=== PATIENT | female | born 1980 | race Caucasian/White ===

== ENCOUNTER 2016-12-06 08:30 | Inpatient (IN) | payer BC ==
[2016-12-06] MEDS ORDERED: Sodium Chloride 0.9% 10 ML Syringe FLUSH PRN (09:27)
[2016-12-06] MEDS ORDERED: Oxytocin/Lactated Ringers 10 UNIT/1,000 ML BAG IV SCH (09:30)
[2016-12-06] MEDS ORDERED: Lactated Ringers 1,000 ML IV SCH (09:30)
--- NOTE | 2016-12-06 10:15 | PCM.LDHP ---
<Tato Francis - Last Filed: 12/06/16 09:46> L&D History of Present Illness - General Admit Problem/Dx: Patient Status Order with Admit Dx/Problem 12/06/16 09:34 Patient Status [ADT] Routine Admission Diagnosis/Problem Admission Diagnosis/Problem Source of Information: Patient History Limitations: Reports: No Limitations - History of Present Illness Introduction:: History of present illness: Patient is a 36-year-old 7 para 1144 white female at 39-1/7 weeks presenting for regular contractions that began occurring last night at 6:30 pm. ONIEL is 12/15/16 based on LMP. High risk due to advanced maternal age, history of recurrent spontaneous abortions, increased distance from hospital, and triplet with early spontaneous rupture of membranes. G[employer]ENTICE history: 7 para 1144. Menses occur monthly at every 23 days. Had a triplet , resulting in three children being born at 27 weeks gestation by on 04/21/2009 after early rupture of membranes at [facility] in [place]. Baby A, Radha, was 2 lbs 0 oz. Baby B, Clay, was 2 lbs 3 oz. Baby C, Pari, was 1 lbs 15 oz. She had a on 05/30/2010 at [facility] after 24 hours of labor, resulting in a 7 lbs 11 oz girl named Maya. course: First visit occurred on 05/18/16. Last menstrual period occurred 04/19/16, placing her at an ONIEL of 12/12/16. Was not on control at conception. Initial ultrasound at her first appointment and 20-week ultrasound support her ONIEL. 20-week ultrasound showed normal growth and anatomy. Has had regular appointments without any complications. Fundal height growth has been appropriate. Weight at first visit was 151 and current weight is 189, a gain of 38 lbs. TDAP was administered on . Rhogam was administered on 09/28/16 for O negative blood type. Laboratory testing: Initial testing showed O negative blood with a negative antibody screen. RPR non-reactive and rubella reactive. Hepatitis B surface antigen and HIV assays were negative. Initial HGB was 12.9 and platelet count was 214. Urinalysis showed mixed delgado suggestive of contamination. Second trimester labs showed a HGB of 11.4 and platelet count of 215. One-hour GTT was negative at 126. Group B strep is negative. [place] testing was performed, showing a low probability for trisomy 21, 18, and 13. Past medical history: 1. Breast cancer (2011) 2. Fibroid 3. Multiple miscarriages 4. Premature rupture of membranes 5. MTHFR, lipoprotein A mutations (hematologic workup for recurrent miscarriages ) 6. History of IUI with triplet Past surgical history: 1. R mastectomy 2012 2. Myomectomy 3. D&C 4. 2009 Allergies: 1. No known drug or food allergies Medications: 1. tablets 2. Iron tablets Social history: Lives in [place], [place], over an hour away from the hospital. to [facility] Hsieh. No usage of alcohol, tobacco, or illicit drugs during . Family history: Mother is alive with HTN. Father is alive with hypercholesterolemia. One brother alive and well. MGM is decreased and had Parkinson's disease. MGF decreased from old age. PGM decreased and had CVAs. PGF from old age. No anesthesia, bleeding, or clotting problems in family. Review of systems: HEENT: no headaches Cardiovascular: no chest psin Respiratory: no shortness of breath Breast: normal changes associated with Abdominal: pain with contractions Extremities: no swelling, no calf pain Physical exam: HEENT: normocephalic, atraumatic Cardiovascular: regular rate and rhythm, no murmurs Respiratory: clear breath sounds in all lung valencia Breast: deferred Abdominal: protuberant with , no tenderness Extremities: no swelling, no calf tenderness Neurological: normal reflexes - Related Data Allergies/Adverse Reactions: Allergies Allergy/AdvReac Type Severity Reaction Status Date / Time No Known Allergies Allergy Verified 12/06/16 09:37 Past Medical History G[employer]ENTICE History: Reports: Spontaneous Oncologic (Cancer) History: Reports: Breast, Other (See Below) Other Oncologic History: Rt Mastectomy in 2013 - Past Surgical History HEENT Surgical History: Reports: None Oncologic Surgical History: Reports: Mastectomy Social & Family History - Tobacco Use Smoking Status *Q: Never Smoker - Caffeine Use Caffeine Use: Reports: None - Recreational Drug Use Recreational Drug Use: No H&P Review of Systems - Review of Systems: Review Of Systems: See Below L&D Exam - Exam Exam: See Below - Vital Signs Vital Signs: Last Vital Signs Temp 98.2 F 12/06/16 09:09 Pulse 82 12/06/16 09:09 Resp 18 12/06/16 09:09 BP 120/72 12/06/16 09:09 Pulse Ox Weight: 188 lb - Problem List (1) 39 weeks gestation of SNOMED Code(s): 97336621 ICD Code: Z3A.39 - 39 WEEKS GESTATION OF Status: Acute Current Visit: Yes Problem List Initiated/Reviewed/Updated: Yes Orders Last 24hrs: Active Orders 24 hr Category Date Time Status Patient Status [ADT] Routine ADT 12/06/16 09:34 Active Activity as Tolerated [RC] PFP Care 12/06/16 09:34 Active Communication Order [RC] ASDIRECTED Care 12/06/16 09:34 Active Heart Tones [RC] ASDIRECTED Care 12/06/16 09:34 Active Notify Provider [RC] PFP Care 12/06/16 09:34 Active Notify Provider [RC] PRN Care 12/06/16 09:34 Active Peripheral IV Care [RC] . DIRECTED Care 12/06/16 09:34 Active Vital Signs [RC] PER UNIT ROUTINE Care 12/06/16 09:34 Active Regular Diet [DIET] Diet 12/06/16 Breakfast Active Lactated Ringers [Ringers, Lactated] 1,000 ml Med 12/06/16 09:30 Active IV ASDIRECTED Oxytocin/Lactated Ringers [Pitocin in LR 10 Units/1,000 Med 12/06/16 09:30 Active ML] 10 unit in 1,000 ml IV .CONTINUOUS Sodium Chloride 0.9% [Saline Flush] Med 12/06/16 09:27 Active 10 ml FLUSH ASDIRECTED PRN Electronic Heart Tones Ext w TOCO [WOMSER] Oth 12/06/16 09:34 Ordered Routine Electronic Heart Tones Internal [WOMSER] Per Unit Oth 12/06/16 09:34 Ordered Routine Peripheral IV Insertion Adult [OM.PC] Routine Oth 12/06/16 09:34 Ordered Resuscitation Status Routine Resus Stat 12/06/16 09:27 Ordered Medication Orders Lactated Ringer's (Ringers, Lactated) 1,000 mls @ 100 mls/hr IV ASDIRECTED ANDRZEJ Oxytocin/Lactated Ringer's (Pitocin In Lr 10 Units/1,000 Ml) 10 unit in 1,000 mls @ 500 mls/hr IV .CONTINUOUS ANDRZEJ Sodium Chloride (Saline Flush) 10 ml FLUSH ASDIRECTED PRN PRN Reason: Keep Vein Open Assessment/Plan Comment:: Assessment: 1. 36-year-old 7 para 1144 at 39-1/7 weeks gestation with an ONIEL of presenting in spontaneous labor. 2. GBS negative 3. Rhogam administered on 09/28/16 due to Rh-negative status Plan: 1. after TOLAC with expectant management 2. Patient plans to breast feed <Arturo Reyna - Last Filed: 12/06/16 10:41> L&D History of Present Illness - General Date of Service: 12/06/16 Admit Problem/Dx: Patient Status Order with Admit Dx/Problem 12/06/16 09:34 Patient Status [ADT] Routine Admission Diagnosis/Problem Admission Diagnosis/Problem Source of Information: Patient History Limitations: Reports: No Limitations - History of Present Illness Improves with: Reports: None Worsens with: Reports: None Associated Symptoms: Reports: N H&P Review of Systems - Review of Systems: General: Reports: No Symptoms HEENT: Reports: No Symptoms Pulmonary: Reports: No Symptoms Cardiovascular: Reports: No Symptoms Gastrointestinal: Reports: No Symptoms Genitourinary: Reports: No Symptoms Musculoskeletal: Reports: No Symptoms Skin: Reports: No Symptoms Psychiatric: Reports: No Symptoms Neurological: Reports: No Symptoms Hematologic/Lymphatic: Reports: No Symptoms Immunologic: Reports: No Symptoms L&D Exam - Vital Signs Vital Signs: Last Vital Signs Temp 98.2 F 12/06/16 09:09 Pulse 82 12/06/16 09:09 Resp 18 12/06/16 09:09 BP 120/72 12/06/16 09:09 Pulse Ox - OB Specific Fundal Height In cm: 39 Contraction Duration (sec): 60 Contraction Frequency (min): 3 Contraction Intensity: Moderate to Strong Movement: Active Heart Tones: Present Heart Tones per Min: 135 Heart Rate (FHR) Variability: Moderate (6-25 bmp) Presentation: Vertex - Matson Score Matson Score Cervix Position: Posterior Matson Score Consistency: Soft Matson Score Effacement: >80% Matson Score Dilation: > 5 cm Matson Score Infant's Station: +1, +2 Matson Score Total: 11 - Exam General: Alert, Oriented HEENT: Conjunctiva Clear, Mucosa Moist & Mallard, Normal Nasal Septum, TMs Clear, PERRLA Neck: Supple, Trachea Midline Lungs: Clear to Auscultation, Normal Respiratory Effort Cardiovascular: Regular Rate, Regular Rhythm GI/Abdominal Exam: Normal Bowel Sounds, Soft, Non-Tender, No Organomegaly, No Distention, No Abnormal Bruit, No Mass, Pelvis Stable Rectal Exam: Normal Exam, Normal Rectal Tone Genitourinary: Normal external exam, Normal bimanual exam, Normal speculum exam Back Exam: Normal Inspection, Full Range of Motion Extremities: Normal Inspection, Normal Range of Motion, Non-Tender, No Pedal Edema, Normal Capillary Refill Skin: Warm, Dry, Intact Neurological: Reflexes Equal Bilateral Psychiatric: Alert, Normal Affect, Normal Mood - Problem List (1) Previous delivery affecting , antepartum SNOMED Code(s): 984891718, 076627446 ICD Code: O34.219 - MATERNAL CARE FOR UNSP TYPE SCAR FROM PREVIOUS DEL Status: Acute Current Visit: Yes (2) Rh negative status during in third trimester, antepartum SNOMED Code(s): 989811852, 355961502 ICD Code: O09.893 - SUPERVISION OF OTHER HIGH RISK PREGNANCIES, THIRD TRIMESTER Status: Acute Current Visit: Yes (3) 39 weeks gestation of SNOMED Code(s): 21956603 ICD Code: Z3A.39 - 39 WEEKS GESTATION OF Status: Acute Current Visit: Yes Problem List Initiated/Reviewed/Updated: No Orders Last 24hrs: Active Orders 24 hr Category Date Time Status Patient Status [ADT] Routine ADT 12/06/16 09:34 Active Activity as Tolerated [RC] PFP Care 12/06/16 09:34 Active Communication Order [RC] ASDIRECTED Care 12/06/16 09:34 Active Heart Tones [RC] ASDIRECTED Care 12/06/16 09:34 Active Notify Provider [RC] PFP Care 12/06/16 09:34 Active Notify Provider [RC] PRN Care 12/06/16 09:34 Active Peripheral IV Care [RC] . DIRECTED Care 12/06/16 09:34 Active Vital Signs [RC] PER UNIT ROUTINE Care 12/06/16 09:34 Active Regular Diet [DIET] Diet 12/06/16 Breakfast Active Lactated Ringers [Ringers, Lactated] 1,000 ml Med 12/06/16 09:30 Active IV ASDIRECTED Oxytocin/Lactated Ringers [Pitocin in LR 10 Units/1,000 Med 12/06/16 09:30 Active ML] 10 unit in 1,000 ml IV .CONTINUOUS Sodium Chloride 0.9% [Saline Flush] Med 12/06/16 09:27 Active 10 ml FLUSH ASDIRECTED PRN Electronic Heart Tones Ext w TOCO [WOMSER] Oth 12/06/16 09:34 Ordered Routine Electronic Heart Tones Internal [WOMSER] Per Unit Oth 12/06/16 09:34 Ordered Routine Peripheral IV Insertion Adult [OM.PC] Routine Ot 12/06/16 09:34 Ordered Resuscitation Status Routine Resus Stat 12/06/16 09:27 Ordered Medication Orders Lactated Ringer's (Ringers, Lactated) 1,000 mls @ 100 mls/hr IV ASDIRECTED ANDRZEJ Oxytocin/Lactated Ringer's (Pitocin In Lr 10 Units/1,000 Ml) 10 unit in 1,000 mls @ 500 mls/hr IV .CONTINUOUS ANDRZEJ Sodium Chloride (Saline Flush) 10 ml FLUSH ASDIRECTED PRN PRN Reason: Keep Vein Open Assessment/Plan Comment:: Patient seen and examined by me and discussed with student.
--- NOTE | 2016-12-06 11:13 | PCM.SN ---
- Free Text/Narrative Note: Cervix examined by Dr. Reyna and is 8 cm, 100% effaced, soft, mid-position, +2 station. Patient declines amniotomy at this time. Category 1 heart rate tracing.
[2016-12-06] MEDS ORDERED: Lidocaine 1% 50 ML MDV ONE (13:56)
--- NOTE | 2016-12-06 14:26 | PCM.DEL ---
L & D Note - General Info Date of Service: 12/06/16 Mother's Due Date: 12/12/16 - Delivery Note Labor: Spontaneous Delivery Outcome: Livebirth (Female liveborn Wednesday12/06/16 at 1354 hrs. GARETH meconium-stained amnionic fluid no nuchal cord 4010 g/8 pounds 13.4 ounces. Apgars 8/9 ) Infant Delivery Method: Spontaneous Vaginal Delivery-Single Delivery Mode: Spontaneous Presentation: Right Occiput Anterior (GARETH) Nuchal Cord: None Prep: Povidone-Iodine (Betadine Anesthesia Type: Local (For second-degree midline laceration repair) Anesthetic: Lidocaine (Xylocaine) 1% Plain (15 mL) Local Anesthetic Volume: Other (15 mL) Amniotic Fluid Description: Meconium Stained (Dr. Blunt etiology teacher in attendance at delivery) Episiotomy Type: None Laceration: 2nd Degree Suture type: Other (Monocryl 2) Suture size: 3-0 Placenta: Intact, Spontaneous (Central cord insertion delivery of placenta Tommie 1357 hrs. Wednesday12/06/16) Cord: 3 Vessels Estimated Blood Loss: 250 Resuscitation Needed: No [place]: Suctioned, Bulb Syringe, Cathether, Stimulated, Warmed, [place] Used, Warmer Used Provider: Arturo Reyna Score 1 min: 8 Score 5 min: 9 - Patient Data Vitals - Most Recent: Last Vital Signs Temp 98.2 F 12/06/16 09:09 Pulse 82 12/06/16 09:09 Resp 18 12/06/16 09:09 BP 120/72 12/06/16 09:09 Pulse Ox Weight - Most Recent: 188 lb Lab Results Last 24 Hours: Laboratory Results - last 24 hr 12/06/16 12/06/16 Range/Units 12:05 12:05 WBC 16.84 H (3.98-10.04) K/mm3 RBC 3.82 L (3.98-5.22) M/mm3 Hgb 12.3 (11.2-15.7) gm/L Hct 37.4 (34.1-44.9) % MCV 97.9 H (79.4-94.8) fl MCH 32.2 (25.6-32.2) pg MCHC 32.9 (32.2-35.5) g/dl RDW Std Deviation 49.9 H (36.4-46.3) fL Plt Count 197 (182-369) K/mm3 MPV 11.1 (9.4-12.3) fl Blood Type O NEGATIVE Gel Antibody Screen Positive Med Orders - Current: Current Medications Lactated Ringer's (Ringers, Lactated) 1,000 mls @ 100 mls/hr IV ASDIRECTED ANDRZEJ Oxytocin/Lactated Ringer's (Pitocin In Lr 10 Units/1,000 Ml) 10 unit in 1,000 mls @ 500 mls/hr IV .CONTINUOUS ANDRZEJ Sodium Chloride (Saline Flush) 10 ml FLUSH ASDIRECTED PRN PRN Reason: Keep Vein Open Discontinued Medications Lidocaine HCl (Xylocaine 1%) Confirm Administered Dose 50 ml .ROUTE .STK-MED ONE Stop: 12/06/16 13:57 - Problem List & Annotations (1) Previous delivery affecting , antepartum SNOMED Code(s): 272419714, 111988866 Code(s): O34.219 - MATERNAL CARE FOR UNSP TYPE SCAR FROM PREVIOUS DEL Status: Acute Current Visit: Yes (2) Rh negative status during in third trimester, antepartum SNOMED Code(s): 788054438, 264779325 Code(s): O09.893 - SUPERVISION OF OTHER HIGH RISK PREGNANCIES, THIRD TRIMESTER Status: Acute Current Visit: Yes (3) 39 weeks gestation of SNOMED Code(s): 59484389 Code(s): Z3A.39 - 39 WEEKS GESTATION OF Status: Acute Current Visit: Yes (4) Labor and delivery complicated by meconium in amniotic fluid SNOMED Code(s): 544556151 Code(s): O77.0 - LABOR AND DELIVERY COMPLICATED BY MECONIUM IN AMNIOTIC FLUID Status: Acute Current Visit: Yes (5) Desires (vaginal after ) trial SNOMED Code(s): 984738965, 102761175 Code(s): O34.219 - MATERNAL CARE FOR UNSP TYPE SCAR FROM PREVIOUS DEL Status: Acute Current Visit: Yes (6) Second degree laceration of perineum, delivered, current hospitalization SNOMED Code(s): 236934314 Code(s): O70.1 - SECOND DEGREE PERINEAL LACERATION DURING DELIVERY Status: Acute Current Visit: Yes - Problem List Review Problem List Initiated/Reviewed/Updated: No - My Orders Last 24 Hours: My Active Orders 12/06/16 09:27 Sodium Chloride 0.9% [Saline Flush] 10 ml FLUSH ASDIRECTED PRN Resuscitation Status Routine 12/06/16 09:30 Lactated Ringers [Ringers, Lactated] 1,000 ml IV ASDIRECTED Oxytocin/Lactated Ringers [Pitocin in LR 10 Units/1,000 ML] 10 unit in 1,000 ml IV .CONTINUOUS 12/06/16 09:34 Patient Status [ADT] Routine Activity as Tolerated [RC] PFP Communication Order [RC] ASDIRECTED Heart Tones [RC] ASDIRECTED Notify Provider [RC] PFP Notify Provider [RC] PRN Peripheral IV Care [RC] . DIRECTED Vital Signs [RC] PER UNIT ROUTINE Electronic Heart Tones Ext w TOCO [WOMSER] Routine Electronic Heart Tones Internal [WOMSER] Per Unit Routine Peripheral IV Insertion Adult [OM.PC] Routine 12/06/16 12:05 ANTIBODY IDENTIFICATION [BBK] Stat TYPE AND SCREEN [BBK] Stat 12/06/16 Breakfast Regular Diet [DIET] - Plan Plan:: Patient seen and examined by me and discussed with student.
[2016-12-06] MEDS ORDERED: Docusate Sodium 100 MG Cap PO PRN (14:51)
[2016-12-06] MEDS ORDERED: Benzocaine/Menthol 20%-0.5% Spray 56 GM Canister TOP PRN (17:28)
[2016-12-06] MEDS ORDERED: Witch Hazel Medicated Pads 100/Jar TOP PRN (17:28)
[2016-12-06] MEDS: Ibuprofen 600 MG Tab PO PRN (21:58)
[2016-12-07] MEDS: Acetaminophen 325 MG Tab PO PRN ×2 (01:10→16:40)
[2016-12-07] MEDS: Ibuprofen 600 MG Tab PO PRN ×3 (03:01→14:49)
--- NOTE | 2016-12-07 08:31 | PCM.DCSUM1 ---
Discharge Summary - Hospital Course Free Text/Narrative:: [facility] LIVE L/D Delivery Note Patient Name: AARON MONTERO Date of : 78 Patient Status: Inpatient Attending Provider: Cayetano Land Date: 12/06/16 14:21 Initialization Date: 12/06/16 14:21 L & D Note - General Info Date of Service: 12/06/16 Mother's Due Date: 12/12/16 - Delivery Note Labor: Spontaneous Delivery Outcome: Livebirth (Female liveborn Wednesday12/06/16 at 1354 hrs. GARETH meconium-stained amnionic fluid no nuchal cord 4010 g/8 pounds 13.4 ounces. Apgars 8/9 ) Infant Delivery Method: Spontaneous Vaginal Delivery-Single Infant Delivery Mode: Spontaneous Presentation: Right Occiput Anterior (GARETH) Nuchal Cord: None Prep: Povidone-Iodine (Betadine Anesthesia Type: Local (For second-degree midline laceration repair) Anesthetic: Lidocaine (Xylocaine) 1% Plain (15 mL) Local Anesthetic Volume: Other (15 mL) Amniotic Fluid Description: Meconium Stained (Dr. Blunt sport psychologist in attendance at delivery) Episiotomy Type: None Laceration: 2nd Degree Suture type: Other (Monocryl 2) Suture size: 3-0 Placenta: Intact, Spontaneous (Central cord insertion delivery of placenta Tommie 1357 hrs. Wednesday12/06/16) Cord: 3 Vessels Estimated Blood Loss: 250 Resuscitation Needed: No [place]: Suctioned, Bulb Syringe, Cathether, Stimulated, Warmed, [place] Used, Warmer Used Provider: Arturo Reyna Score 1 min: 8 Score 5 min: 9 - Patient Data Vitals - Most Recent: Last Vital Signs Temp 98.2 F 12/06/16 09:09 Pulse 82 12/06/16 09:09 Resp 18 12/06/16 09:09 BP 120/72 12/06/16 09:09 Pulse Ox Weight - Most Recent: 188 lb Lab Results Last 24 Hours: Laboratory Results - last 24 hr 12/06/16 12/06/16 Range/Units 12:05 12:05 WBC 16.84 H (3.98-10.04) K/mm3 RBC 3.82 L (3.98-5.22) M/mm3 Hgb 12.3 (11.2-15.7) gm/L Hct 37.4 (34.1-44.9) % MCV 97.9 H (79.4-94.8) fl MCH 32.2 (25.6-32.2) pg MCHC 32.9 (32.2-35.5) g/dl RDW Std Deviation 49.9 H (36.4-46.3) fL Plt Count 197 (182-369) K/mm3 MPV 11.1 (9.4-12.3) fl Blood Type O NEGATIVE Gel Antibody Screen Positive Med Orders - Current: Current Medications Lactated Ringer's (Ringers, Lactated) 1,000 mls @ 100 mls/hr IV ASDIRECTED ANDRZEJ Oxytocin/Lactated Ringer's (Pitocin In Lr 10 Units/1,000 Ml) 10 unit in 1,000 mls @ 500 mls/hr IV .CONTINUOUS ANDRZEJ Sodium Chloride (Saline Flush) 10 ml FLUSH ASDIRECTED PRN PRN Reason: Keep Vein Open Discontinued Medications Lidocaine HCl (Xylocaine 1%) Confirm Administered Dose 50 ml .ROUTE .STK-MED ONE Stop: 12/06/16 13:57 - Problem List & Annotations (1) Previous delivery affecting , antepartum SNOMED Code(s): 976176286, 262783460 Code(s): O34.219 - MATERNAL CARE FOR UNSP TYPE SCAR FROM PREVIOUS DEL Status: Acute Current Visit: Yes (2) Rh negative status during in third trimester, antepartum SNOMED Code(s): 703469060, 709937046 Code(s): O09.893 - SUPERVISION OF OTHER HIGH RISK PREGNANCIES, THIRD TRIMESTER Status: Acute Current Visit: Yes (3) 39 weeks gestation of SNOMED Code(s): 49127201 Code(s): Z3A.39 - 39 WEEKS GESTATION OF Status: Acute Current Visit: Yes (4) Labor and delivery complicated by meconium in amniotic fluid SNOMED Code(s): 077642096 Code(s): O77.0 - LABOR AND DELIVERY COMPLICATED BY MECONIUM IN AMNIOTIC FLUID Status: Acute Current Visit: Yes (5) Desires (vaginal after ) trial SNOMED Code(s): 000143552, 847621508 Code(s): O34.219 - MATERNAL CARE FOR UNSP TYPE SCAR FROM PREVIOUS DEL Status: Acute Current Visit: Yes (6) Second degree laceration of perineum, delivered, current hospitalization SNOMED Code(s): 770318908 Code(s): O70.1 - SECOND DEGREE PERINEAL LACERATION DURING DELIVERY Status: Acute Current Visit: Yes - Problem List Review Problem List Initiated/Reviewed/Updated: No - My Orders Last 24 Hours: My Active Orders 12/06/16 09:27 Sodium Chloride 0.9% [Saline Flush] 10 ml FLUSH ASDIRECTED PRN Resuscitation Status Routine 12/06/16 09:30 Lactated Ringers [Ringers, Lactated] 1,000 ml IV ASDIRECTED Oxytocin/Lactated Ringers [Pitocin in LR 10 Units/1,000 ML] 10 unit in 1,000 ml IV .CONTINUOUS 12/06/16 09:34 Patient Status [ADT] Routine Activity as Tolerated [RC] PFP Communication Order [RC] ASDIRECTED Heart Tones [RC] ASDIRECTED Notify Provider [RC] PFP Notify Provider [RC] PRN Peripheral IV Care [RC] . DIRECTED Vital Signs [RC] PER UNIT ROUTINE Electronic Heart Tones Ext w TOCO [WOMSER] Routine Electronic Heart Tones Internal [WOMSER] Per Unit Routine Peripheral IV Insertion Adult [OM.PC] Routine 12/06/16 12:05 ANTIBODY IDENTIFICATION [BBK] Stat TYPE AND SCREEN [BBK] Stat 12/06/16 Breakfast Regular Diet [DIET] - Plan Plan:: Patient seen and examined by me and discussed with student. HPI Initial Comments: [facility] LIVE L/D Delivery Note Patient Name: AARON MONTERO Date of : 78 Patient Status: Inpatient Attending Provider: Cayetano Land Date: 12/06/16 14:21 Initialization Date: 12/06/16 14:21 L & D Note - General Info Date of Service: 12/06/16 Mother's Due Date: 12/12/16 - Delivery Note Labor: Spontaneous Delivery Outcome: Livebirth (Female liveborn Wednesday12/06/16 at 1354 hrs. GARETH meconium-stained amnionic fluid no nuchal cord 4010 g/8 pounds 13.4 ounces. Apgars 8/9 ) Delivery Method: Spontaneous Vaginal Delivery-Single Delivery Mode: Spontaneous Presentation: Right Occiput Anterior (GARETH) Nuchal Cord: None Prep: Povidone-Iodine (Betadine Anesthesia Type: Local (For second-degree midline laceration repair) Anesthetic: Lidocaine (Xylocaine) 1% Plain (15 mL) Local Anesthetic Volume: Other (15 mL) Amniotic Fluid Description: Meconium Stained (Dr. Blunt sport psychologist in attendance at delivery) Episiotomy Type: None Laceration: 2nd Degree Suture type: Other (Monocryl 2) Suture size: 3-0 Placenta: Intact, Spontaneous (Central cord insertion delivery of placenta Tommie 1357 hrs. Wednesday12/06/16) Cord: 3 Vessels Estimated Blood Loss: 250 Resuscitation Needed: No [place]: Suctioned, Bulb Syringe, Cathether, Stimulated, Warmed, [place] Used, Warmer Used Provider: Arturo Reyna Score 1 min: 8 Score 5 min: 9 - Patient Data Vitals - Most Recent: Last Vital Signs Temp 98.2 F 12/06/16 09:09 Pulse 82 12/06/16 09:09 Resp 18 12/06/16 09:09 BP 120/72 12/06/16 09:09 Pulse Ox Weight - Most Recent: 188 lb Lab Results Last 24 Hours: Laboratory Results - last 24 hr 12/06/16 12/06/16 Range/Units 12:05 12:05 WBC 16.84 H (3.98-10.04) K/mm3 RBC 3.82 L (3.98-5.22) M/mm3 Hgb 12.3 (11.2-15.7) gm/L Hct 37.4 (34.1-44.9) % MCV 97.9 H (79.4-94.8) fl MCH 32.2 (25.6-32.2) pg MCHC 32.9 (32.2-35.5) g/dl RDW Std Deviation 49.9 H (36.4-46.3) fL Plt Count 197 (182-369) K/mm3 MPV 11.1 (9.4-12.3) fl Blood Type O NEGATIVE Gel Antibody Screen Positive Med Orders - Current: Current Medications Lactated Ringer's (Ringers, Lactated) 1,000 mls @ 100 mls/hr IV ASDIRECTED ANDRZEJ Oxytocin/Lactated Ringer's (Pitocin In Lr 10 Units/1,000 Ml) 10 unit in 1,000 mls @ 500 mls/hr IV .CONTINUOUS ANDRZEJ Sodium Chloride (Saline Flush) 10 ml FLUSH ASDIRECTED PRN PRN Reason: Keep Vein Open Discontinued Medications Lidocaine HCl (Xylocaine 1%) Confirm Administered Dose 50 ml .ROUTE .STK-MED ONE Stop: 12/06/16 13:57 - Problem List & Annotations (1) Previous delivery affecting , antepartum SNOMED Code(s): 979409945, 202235965 Code(s): O34.219 - MATERNAL CARE FOR UNSP TYPE SCAR FROM PREVIOUS DEL Status: Acute Current Visit: Yes (2) Rh negative status during in third trimester, antepartum SNOMED Code(s): 453894613, 027881376 Code(s): O09.893 - SUPERVISION OF OTHER HIGH RISK PREGNANCIES, THIRD TRIMESTER Status: Acute Current Visit: Yes (3) 39 weeks gestation of SNOMED Code(s): 00623793 Code(s): Z3A.39 - 39 WEEKS GESTATION OF Status: Acute Current Visit: Yes (4) Labor and delivery complicated by meconium in amniotic fluid SNOMED Code(s): 107072917 Code(s): O77.0 - LABOR AND DELIVERY COMPLICATED BY MECONIUM IN AMNIOTIC FLUID Status: Acute Current Visit: Yes (5) Desires (vaginal after ) trial SNOMED Code(s): 082914892, 183213065 Code(s): O34.219 - MATERNAL CARE FOR UNSP TYPE SCAR FROM PREVIOUS DEL Status: Acute Current Visit: Yes (6) Second degree laceration of perineum, delivered, current hospitalization SNOMED Code(s): 935533125 Code(s): O70.1 - SECOND DEGREE PERINEAL LACERATION DURING DELIVERY Status: Acute Current Visit: Yes - Problem List Review Problem List Initiated/Reviewed/Updated: No - My Orders Last 24 Hours: My Active Orders 12/06/16 09:27 Sodium Chloride 0.9% [Saline Flush] 10 ml FLUSH ASDIRECTED PRN Resuscitation Status Routine 12/06/16 09:30 Lactated Ringers [Ringers, Lactated] 1,000 ml IV ASDIRECTED Oxytocin/Lactated Ringers [Pitocin in LR 10 Units/1,000 ML] 10 unit in 1,000 ml IV .CONTINUOUS 12/06/16 09:34 Patient Status [ADT] Routine Activity as Tolerated [RC] PFP Communication Order [RC] ASDIRECTED Heart Tones [RC] ASDIRECTED Notify Provider [RC] PFP Notify Provider [RC] PRN Peripheral IV Care [RC] . DIRECTED Vital Signs [RC] PER UNIT ROUTINE Electronic Heart Tones Ext w TOCO [WOMSER] Routine Electronic Heart Tones Internal [WOMSER] Per Unit Routine Peripheral IV Insertion Adult [OM.PC] Routine 12/06/16 12:05 ANTIBODY IDENTIFICATION [BBK] Stat TYPE AND SCREEN [BBK] Stat 12/06/16 Breakfast Regular Diet [DIET] - Plan Plan:: Patient seen and examined by me and discussed with student. Brief History: [facility] LIVE . L/D Delivery Note. Patient Name: AARON MONTERO NMedical Record Number: [id number]. Date of : Patient Status: Inpatient. Attending Provider: Cayetano Land FAccount Number: [id number]. Date: 12/06/16 14:21Initialization Date: 12/06/16 14:21. L & D Note. - General Info. Date of Service: 12/06/16. Mother's Due Date: 12/12/16. - Delivery Note. Labor: Spontaneous. Delivery Outcome: Livebirth ( Female liveborn Wednesday12/06/16 at 1354 hrs. GARETH meconium-stained amnionic fluid no nuchal cord 4010 g/8 pounds 13.4 ounces. Apgars 8/9 ). Infant Delivery Method: Spontaneous Vaginal Delivery-Single. Infant Delivery Mode: Spontaneous. Presentation: Right Occiput Anterior (GARETH). Nuchal Cord: None. Prep: Povidone-Iodine (Betadine. Anesthesia Type: Local (For second- degree midline laceration repair). Anesthetic: Lidocaine (Xylocaine) 1% Plain ( 15 mL). Local Anesthetic Volume: Other (15 mL). Amniotic Fluid Description: Meconium Stained (Dr. Blunt sport psychologist in attendance at delivery). Episiotomy Type: None. Laceration: 2nd Degree. Suture type: Other (Monocryl 2 ). Suture size: 3-0. Placenta: Intact, Spontaneous (Central cord insertion delivery of placenta Tommie 1357 hrs. Wednesday12/06/16). Cord: 3 Vessels. Estimated Blood Loss: 250. Resuscitation Needed: No. : Suctioned, Bulb Syringe, Cathether, Stimulated, Warmed, [place] Used, Warmer Used. Provider: Arturo Reyna. Score 1 min: 8. Score 5 min: 9. - Patient Data. Vitals - Most Recent: Last Vital Signs. Temp 98.2 F 12/06/16 09:09. Pulse 82 12/06/16 09:09. Resp 18 12/06/16 09:09. BP 120/72 09:09. Pulse Ox. Weight - Most Recent: 188 lb. Lab Results Last 24 Hours: Laboratory Results - last 24 hr. 12/06/1708Range/Units. 12:0512:05. WBC 16.84 H (3.98-10.04) K/mm3. RBC 3.82 L (3.98-5.22) M/mm3. Hgb 12.3 (11.2 -15.7) gm/L. Hct 37.4 (34.1-44.9) %. MCV 97.9 H (79.4-94.8) fl. MCH 32.2 ( 25.6-32.2) pg. MCHC 32.9 (32.2-35.5) g/dl. RDW Std Deviation 49.9 H (36.4- 46.3) fL. Plt Count 197 (182-369) K/mm3. MPV 11.1 (9.4-12.3) fl. Blood Type O NEGATIVE. Gel Antibody Screen Positive. Med Orders - Current: Current Medications. Lactated Ringer's (Ringers, Lactated) 1,000 mls @ 100 mls/hr IV ASDIRECTED ANDRZEJ. Oxytocin/Lactated Ringer's (Pitocin In Lr 10 Units/1,000 Ml) 10 unit in 1,000 mls @ 500 mls/hr IV .CONTINUOUS ANDRZEJ. Sodium Chloride (Saline Flush) 10 ml FLUSH ASDIRECTED PRN. PRN Reason: Keep Vein Open. Discontinued Medications. Lidocaine HCl (Xylocaine 1%) Confirm Administered Dose 50 ml .ROUTE .STK-MED ONE. Stop: 12/06/16 13:57. - Problem List & Annotations. (1) Previous delivery affecting , antepartum. SNOMED Code(s): 194075853, 427680285. Code(s): O34.219 - MATERNAL CARE FOR UNSP TYPE SCAR FROM PREVIOUS DEL Status: Acute Current Visit: Yes. (2) Rh negative status during in third trimester, antepartum. SNOMED Code(s): 521910466, 590133368. Code(s): O09.893 - SUPERVISION OF OTHER HIGH RISK PREGNANCIES, THIRD TRIMESTER Status: Acute Current Visit: Yes. (3) 39 weeks gestation of . SNOMED Code(s): 47045106. Code(s): Z3A.39 - 39 WEEKS GESTATION OF Status: Acute Current Visit: Yes. (4) Labor and delivery complicated by meconium in amniotic fluid. SNOMED Code(s): 260084663. Code(s): O77.0 - LABOR AND DELIVERY COMPLICATED BY MECONIUM IN AMNIOTIC FLUID Status: Acute Current Visit: Yes. (5) Desires (vaginal after ) trial. SNOMED Code(s): 195842351, 617845198. Code(s): O34.219 - MATERNAL CARE FOR UNSP TYPE SCAR FROM PREVIOUS DEL Status: Acute Current Visit: Yes. (6) Second degree laceration of perineum, delivered , current hospitalization. SNOMED Code(s): 208301347. Code(s): O70.1 - SECOND DEGREE PERINEAL LACERATION DURING DELIVERY Status: Acute Current Visit: Yes. - Problem List Review. Problem List Initiated/Reviewed/Updated: No. - My Orders. Last 24 Hours: My Active Orders. 12/06/16 09:27. Sodium Chloride 0.9% [Saline Flush] 10 ml FLUSH ASDIRECTED PRN. Resuscitation Status Routine. 12/06/16 09:30. Lactated Ringers [Ringers, Lactated] 1,000 ml IV ASDIRECTED. Oxytocin/Lactated Ringers [Pitocin in LR 10 Units/1,000 ML] 10 unit in 1,000 ml IV .CONTINUOUS. 12/06/16 09:34. Patient Status [ADT] Routine. Activity as Tolerated [RC] PFP. Communication Order [RC] ASDIRECTED. Heart Tones [RC] ASDIRECTED. Notify Provider [RC] PFP. Notify Provider [RC] PRN. Peripheral IV Care [RC] . DIRECTED. Vital Signs [RC] PER UNIT ROUTINE. Electronic Heart Tones Ext w TOCO [WOMSER] Routine. Electronic Heart Tones Internal [WOMSER] Per Unit Routine. Peripheral IV Insertion Adult [OM.PC] Routine. 12/06/16 12:05. ANTIBODY IDENTIFICATION [BBK ] Stat. TYPE AND SCREEN [BBK] Stat. 12/06/16 Breakfast. Regular Diet [DIET]. - Plan. Plan:: Patient seen and examined by me and discussed with student. - Discharge Data Discharge Date: 12/07/16 Discharge Disposition: Home, Self-Care 01 Condition: Good - Discharge Diagnosis/Problem(s) (1) Previous delivery affecting , antepartum SNOMED Code(s): 377262587, 833972888 ICD Code: O34.219 - MATERNAL CARE FOR UNSP TYPE SCAR FROM PREVIOUS DEL Status: Acute Current Visit: Yes (2) Rh negative status during in third trimester, antepartum SNOMED Code(s): 856558687, 213836796 ICD Code: O09.893 - SUPERVISION OF OTHER HIGH RISK PREGNANCIES, THIRD TRIMESTER Status: Acute Current Visit: Yes (3) 39 weeks gestation of SNOMED Code(s): 55843220 ICD Code: Z3A.39 - 39 WEEKS GESTATION OF Status: Acute Current Visit: Yes (4) Labor and delivery complicated by meconium in amniotic fluid SNOMED Code(s): 164730202 ICD Code: O77.0 - LABOR AND DELIVERY COMPLICATED BY MECONIUM IN AMNIOTIC FLUID Status: Acute Current Visit: Yes (5) Desires (vaginal after ) trial SNOMED Code(s): 865965372, 767358261 ICD Code: O34.219 - MATERNAL CARE FOR UNSP TYPE SCAR FROM PREVIOUS DEL Status: Acute Current Visit: Yes (6) Second degree laceration of perineum, delivered, current hospitalization SNOMED Code(s): 281419473 ICD Code: O70.1 - SECOND DEGREE PERINEAL LACERATION DURING DELIVERY Status : Acute Current Visit: Yes - Patient Summary/Data Complications: None Consults: None Hospital Course: Uneventful - Patient Instructions Diet: Regular Diet as Tolerated Driving: Do Not Drive (48 hours) Showering/Bathing: May Shower Notify Provider of: Fever, Increased Pain, Swelling and Redness, Drainage, Nausea and/or Vomiting - Discharge Plan Home Medications: Home Meds Acetaminophen [Tylenol] 650 mg PO Q6H PRN tablet 12/07/16 [Rx] Benzocaine/Menthol [Dermoplast Pain Relief [place]] 1 spray TOP ASDIRECTED PRN canister 12/07/16 [Rx] Docusate Sodium [Colace] 100 mg PO BID PRN cap 12/07/16 [Rx] Ibuprofen [IJD: Ibuprofen] 600 mg PO Q6H PRN tablet 12/07/16 [Rx] Witch Ivonne [Tucks] 1 pad TOP ASDIRECTED PRN pad 12/07/16 [Rx] Referrals: Cayetano Land MD [Primary Care Provider] - (6 weeks) - Discharge Summary/Plan Comment DC Time >30 min.: No - Patient Data Vitals - Most Recent: Last Vital Signs Temp 97.7 F 12/07/16 04:00 Pulse 65 12/07/16 04:00 Resp 13 12/07/16 04:00 BP 112/68 12/07/16 04:00 Pulse Ox 99 12/07/16 04:00 Weight - Most Recent: 188 lb I&O - Last 24 hours: Intake & Output 12/06/16 12/07/16 12/07/16 22:59 06:59 14:59 Intake Total 361 Balance 361 Lab Results - Last 24 hrs: Laboratory Results - last 24 hr 12/06/16 12/06/16 12/06/16 Range/Units 12:05 12:05 16:55 WBC 16.84 H (3.98-10.04) K/mm3 RBC 3.82 L (3.98-5.22) M/mm3 Hgb 12.3 (11.2-15.7) gm/L Hct 37.4 (34.1-44.9) % MCV 97.9 H (79.4-94.8) fl MCH 32.2 (25.6-32.2) pg MCHC 32.9 (32.2-35.5) g/dl RDW Std Deviation 49.9 H (36.4-46.3) fL Plt Count 197 (182-369) K/mm3 MPV 11.1 (9.4-12.3) fl Neut % (Auto) (34.0-71.1) % Lymph % (Auto) (19.3-51.7) % [place] % (Auto) (4.7-12.5) % Eos % (Auto) (0.7-5.8) Baso % (Auto) (0.1-1.2) % Neut # (Auto) (1.56-6.13) K/mm3 Lymph # (Auto) (1.18-3.74) K/mm3 [place] # (Auto) (0.24-0.36) K/mm3 Eos # (Auto) (0.04-0.36) K/mm3 Baso # (Auto) (0.01-0.08) K/mm3 Manual Slide Review Blood Type O NEGATIVE Cancelled Gel Antibody Screen Positive Cancelled Screen 0 ros/5 flds - neg RhIG Candidate? Yes Rhogam Indicated Cancelled 12/07/16 Range/Units 06:15 WBC 18.74 H (3.98-10.04) K/mm3 RBC 3.50 L (3.98-5.22) M/mm3 Hgb 11.3 (11.2-15.7) gm/L Hct 34.4 (34.1-44.9) % MCV 98.3 H (79.4-94.8) fl MCH 32.3 H (25.6-32.2) pg MCHC 32.8 (32.2-35.5) g/dl RDW Std Deviation 50.4 H (36.4-46.3) fL Plt Count 168 L (182-369) K/mm3 MPV 11.1 (9.4-12.3) fl Neut % (Auto) 67.7 (34.0-71.1) % Lymph % (Auto) 20.2 (19.3-51.7) % [place] % (Auto) 9.6 (4.7-12.5) % Eos % (Auto) 1.2 (0.7-5.8) Baso % (Auto) 0.3 (0.1-1.2) % Neut # (Auto) 12.70 H (1.56-6.13) K/mm3 Lymph # (Auto) 3.79 H (1.18-3.74) K/mm3 [place] # (Auto) 1.79 H (0.24-0.36) K/mm3 Eos # (Auto) 0.22 (0.04-0.36) K/mm3 Baso # (Auto) 0.05 (0.01-0.08) K/mm3 Manual Slide Review Normal smear Blood Type Gel Antibody Screen Screen RhIG Candidate? Rhogam Indicated Med Orders - Current: Current Medications Acetaminophen (Tylenol) 650 mg PO Q4H PRN PRN Reason: mild pain or fever Last Admin: 12/07/16 01:10 Dose: 650 mg Benzocaine/Menthol (Dermoplast Pain Relief [place]) 0 gm TOP ASDIRECTED PRN PRN Reason: Pain Last Admin: 12/06/16 18:49 Dose: 1 applic Docusate Sodium (Colace) 100 mg PO BID PRN PRN Reason: Constipation Ibuprofen (Motrin) 600 mg PO Q4H PRN PRN Reason: Mild pain or fever Last Admin: 12/07/16 03:01 Dose: 600 mg Witch Ivonne (Tucks) 1 pad TOP ASDIRECTED PRN PRN Reason: Pain Last Admin: 12/06/16 18:49 Dose: 1 applic Discontinued Medications Lactated Ringer's (Ringers, Lactated) 1,000 mls @ 100 mls/hr IV ASDIRECTED ANDRZEJ Oxytocin/Lactated Ringer's (Pitocin In Lr 10 Units/1,000 Ml) 10 unit in 1,000 mls @ 500 mls/hr IV .CONTINUOUS [facility] Lidocaine HCl (Xylocaine 1%) Confirm Administered Dose 50 ml .ROUTE .STK-MED ONE Stop: 12/06/16 13:57 Last Admin: 12/06/16 16:56 Dose: 50 ml Sodium Chloride (Saline Flush) 10 ml FLUSH ASDIRECTED PRN PRN Reason: Keep Vein Open *Q Meaningful Use (DIS) - VTE *Q VTE Criteria *Q: - Stroke *Q Stroke Criteria *Q: - AMI *Q AMI Criteria *Q:
[2016-12-07 13:58] VITALS: BP 113/51
== END 2016-12-07 17:00 | disposition home or self-care (01) | DRG 560 ==
LOC: JD.OBCHECK 08:30 → JD.OB 08:30 → JD.OBCHECK 09:33 → JD.OB 09:34 → OBSVTOIN 13:54 → JD.OB 13:54
PROVIDERS: ADMIT Obstetrics & Gynecology; ATTEND Obstetrics & Gynecology
PROC: 10E0XZZ Delivery of Products of Conception, External Approach (ICD-10-PCS; principal; 2016-12-06)
PROC: 0KQM0ZZ Repair Perineum Muscle, Open Approach (ICD-10-PCS; 2016-12-06)
DX: O70.1 Second degree perineal laceration during delivery (principal); O77.0 Labor and delivery complicated by meconium in amniotic fluid; O09.523 Supervision of elderly multigravida, third trimester; O09.43 Supervision of pregnancy with grand multiparity, third trimester; Z3A.39 39 weeks gestation of pregnancy; Z37.0 Single live birth
CPT/HCPCS: 36415; 59409; 85025; 85027; 85461; 86850; 86870; 86900; 86901; A9270-GY; J2790

== ENCOUNTER 2021-02-17 04:41 | Inpatient (IN) | payer BC ==
[2021-02-17] MEDS ORDERED: Oxytocin/Lactated Ringers 10 UNIT/1,000 ML BAG IV ONE (05:07)
[2021-02-17] MEDS ORDERED: Lidocaine 1% 50 ML MDV ONE (05:22)
[2021-02-17] MEDS ORDERED: Sodium Chloride 0.9% 10 ML Syringe FLUSH PRN (05:35)
[2021-02-17] MEDS ORDERED: Nalbuphine 10 MG/1 ML Vial IVPUSH PRN (05:35)
--- NOTE | 2021-02-17 05:42 | PCM.DEL ---
L & D Note - General Info Date of Service: 02/17/21 - Delivery Note Labor: Spontaneous Delivery Outcome: Livebirth Delivery Method: Spontaneous Vaginal Delivery-Single Delivery Mode: Spontaneous Presentation: Breech Nuchal Cord: None Anesthesia Type: None Amniotic Fluid Description: Clear Episiotomy Type: None Laceration: 2nd Degree Suture type: Vicryl Suture size: 2-0 Placenta: Intact, Spontaneous Cord: 3 Vessels Estimated Blood Loss: 200 Resuscitation Needed: Yes : Bulb Syringe, Stimulated, Warmed, [place] Used, Warmer Used Delivery Comments (Free Text/Narrative):: Patient complete with feet at introitus. Exam showed knees bent at chest. feet grasped and delivered. Infant noted to be back down. Patient encouraged to push to that abdomen noted to be mostly delivered. Rotated so back to maternal right and hand placed into vaginal to allow delivery of posterior arm. Attempt made at delivering anterior arm, but initially unsuccessful. Rotated back to back down and able to sweep remaining arm down and out. Fetus rotated to back up position and patient encouraged to push. Able to delivery head in next two pushes. Cord clamped and cut. Infant taken to warmer for assessment. Cord gas segment obtained. Cord blood obtained. Placenta allowed time to separate and expelled intact. Inspection of perineum showed a 2nd degree laceration repaired with a 2-0 Vicryl in typical fashion - General Info Date of Service: 02/17/21 - Problem List & Annotations (1) 38 weeks gestation of SNOMED Code(s): 76122304 Code(s): Z3A.38 - 38 WEEKS GESTATION OF Status: Acute Current Visit: Yes (2) Advanced maternal age (AMA), 40 years or greater SNOMED Code(s): 249572105 Code(s): OZA2411 - Status: Acute Current Visit: Yes (3) [place] breech presentation SNOMED Code(s): 098347624 Code(s): O32.8XX0 - MATERNAL CARE FOR OTH MALPRESENTATION OF FETUS, UNSP Status: Acute Current Visit: Yes Qualifiers: Fetus number: single or unspecified fetus Qualified Code(s): O32.8XX0 - Maternal care for other malpresentation of fetus, not applicable or unspecified (4) History of delivery SNOMED Code(s): 079483153 Code(s): Z98.891 - HISTORY OF UTERINE SCAR FROM PREVIOUS SURGERY Status: Acute Current Visit: Yes (5) History of SNOMED Code(s): 061836479, 128039018 Code(s): Z98.891 - HISTORY OF UTERINE SCAR FROM PREVIOUS SURGERY Status: Acute Current Visit: Yes (6) Rh negative status during in third trimester, antepartum SNOMED Code(s): 405919506 Code(s): O09.893 - SUPERVISION OF OTHER HIGH RISK PREGNANCIES, THIRD TRIMESTER Status: Acute Current Visit: No (7) Breech delivery SNOMED Code(s): 133449763, 641102584 Code(s): O32.1XX0 - MATERNAL CARE FOR BREECH PRESENTATION, UNSP Status: Acute Current Visit: Yes (8) , delivered, current hospitalization SNOMED Code(s): 686226100 Code(s): O34.219 - MATERNAL CARE FOR UNSP TYPE SCAR FROM PREVIOUS DEL Status: Acute Current Visit: Yes - Problem List Review Problem List Initiated/Reviewed/Updated: Yes - My Orders Last 24 Hours: My Active Orders 02/17/21 05:35 Patient Status [ADT] Routine Activity as Tolerated [RC] PFP Communication Order [RC] ASDIRECTED Non Stress Test [RC] PER UNIT ROUTINE Notify Provider [RC] PFP Notify Provider [RC] PRN Vital Signs [RC] PER UNIT ROUTINE CBC WITH AUTO DIFF [HEME] Stat RAPID PLASMA REAGIN,RPR [CHEM] Routine Nalbuphine [Nubain] 10 mg IVPUSH Q2H PRN Sodium Chloride 0.9% [Saline Flush] 10 ml FLUSH ASDIRECTED PRN Electronic Heart Tones Ext w TOCO [WOMSER] Routine Electronic Heart Tones Internal [WOMSER] Per Unit Routine Peripheral IV Insertion Adult [OM.PC] Routine Resuscitation Status Routine 02/17/21 05:36 Heart Tones [RC] ASDIRECTED Peripheral IV Care [RC] . DIRECTED CORONAVIRUS COVID-19 DARIA [MOLEC] Stat 02/17/21 05:45 Lactated Ringers [Ringers, Lactated] 1,000 ml IV ASDIRECTED Oxytocin/Lactated Ringers [Pitocin in LR 10 Units/1,000 ML] 10 unit in 1,000 ml IV .CONTINUOUS - Assessment Assessment:: PPD#0 - Plan Plan:: * Routine cares * Complete labs * Breast feeding * Discharge in 1-2 days
--- NOTE | 2021-02-17 05:42 | PCM.LDHP ---
L&D History of Present Illness - General Date of Service: 02/17/21 Admit Problem/Dx: Patient Status Order with Admit Dx/Problem 02/17/21 05:35 Patient Status [ADT] Routine Admission Diagnosis/Problem Admission Diagnosis/Problem Source of Information: Patient History Limitations: Reports: No Limitations - History of Present Illness Introduction:: Patient is a 40 y/o at 38 0/7 wks who had SROM at about 0300 this AM. Presented to L&D around 0450. - Related Data Allergies/Adverse Reactions: Allergies Allergy/AdvReac Type Severity Reaction Status Date / Time No Known Allergies Allergy Verified 02/17/21 08:59 Home Medications: Home Meds Aspirin [Aspirin EC] 81 mg PO DAILY 02/17/21 [History] Ferrous Sulfate [Iron] 325 mg PO DAILY 02/17/21 [History] Folic Acid 1 mg PO DAILY 02/17/21 [History] No122/Iron/Folic Acid [ Multi Tablet] 1 each PO DAILY 02/17/21 [History] Past Medical History [employer] History: Reports: , Spontaneous : 8 Para: 3 (5 Living Children) LMP (Approximate): Oncologic (Cancer) History: Reports: Breast - Past Surgical History Female Surgical History: Reports: Section, D&C, Mastectomy (right), Other (See Below) (myomectomy) Oncologic Surgical History: Reports: Mastectomy Social & Family History - Tobacco Use Tobacco Use Status *Q: Never Tobacco User - Caffeine Use Caffeine Use: Reports: None - Alcohol Use Alcohol Use History: No - Recreational Drug Use Recreational Drug Use: No H&P Review of Systems - Review of Systems: Review Of Systems: See Below General: Reports: No Symptoms Pulmonary: Reports: No Symptoms Cardiovascular: Reports: No Symptoms Gastrointestinal: Reports: Abdominal Pain Genitourinary: Reports: No Symptoms Musculoskeletal: Reports: No Symptoms Psychiatric: Reports: No Symptoms Neurological: Reports: No Symptoms L&D Exam - Exam Exam: See Below - OB Specific Contraction Intensity: Moderate to Strong Movement: Active Heart Tones: Present Heart Tones per Min: 120 Heart Rate (FHR) Variability: Moderate (6-25 bpm) Presentation: Breech - Matson Score Matson Score Cervix Position: Anterior Matson Score Consistency: Soft Matson Score Effacement: >80% Matson Score Dilation: > 5 cm Matson Score 's Station: +1, +2 Matson Score Total: 13 - Exam General: Alert, Oriented, Cooperative GI/Abdominal Exam: Soft, Non-Tender Genitourinary: Normal external exam Extremities: Normal Inspection Skin: Warm, Dry, Intact - Patient Data Result Diagrams: 02/17/21 05:55 - Problem List (1) 38 weeks gestation of SNOMED Code(s): 00752619 ICD Code: Z3A.38 - 38 WEEKS GESTATION OF Status: Acute Current Visit: Yes (2) History of delivery SNOMED Code(s): 077350697 ICD Code: Z98.891 - HISTORY OF UTERINE SCAR FROM PREVIOUS SURGERY Status: Acute Current Visit: Yes (3) History of SNOMED Code(s): 185297144, 453797863 ICD Code: Z98.891 - HISTORY OF UTERINE SCAR FROM PREVIOUS SURGERY Status: Acute Current Visit: Yes (4) Advanced maternal age (AMA), 40 years or greater SNOMED Code(s): 088613780 ICD Code: [id number] - Status: Acute Current Visit: Yes (5) Footling breech presentation SNOMED Code(s): 952723364 ICD Code: O32.8XX0 - MATERNAL CARE FOR OTH MALPRESENTATION OF FETUS, UNSP Status: Acute Current Visit: Yes Qualifiers: Fetus number: single or unspecified fetus Qualified Code(s): O32.8XX0 - Maternal care for other malpresentation of fetus, not applicable or unspecified (6) Rh negative status during in third trimester, antepartum SNOMED Code(s): 113367488 ICD Code: O09.893 - SUPERVISION OF OTHER HIGH RISK PREGNANCIES, THIRD TRIMESTER Status: Acute Current Visit: No Problem List Initiated/Reviewed/Updated: Yes Orders Last 24hrs: Active Orders 24 hr Category Date Time Status Patient Status [ADT] Routine ADT 02/17/21 05:35 Active Activity as Tolerated [RC] PFP Care 02/17/21 05:35 Active Communication Order [RC] ASDIRECTED Care 02/17/21 05:35 Active Heart Tones [RC] ASDIRECTED Care 02/17/21 05:36 Active Non Stress Test [RC] PER UNIT ROUTINE Care 02/17/21 05:35 Active Notify Provider [RC] PFP Care 02/17/21 05:35 Active Notify Provider [RC] PRN Care 02/17/21 05:35 Active Peripheral IV Care [RC] . DIRECTED Care 02/17/21 05:36 Active Vital Signs [RC] PER UNIT ROUTINE Care 02/17/21 05:35 Active CBC WITH AUTO DIFF [HEME] Stat Lab 02/17/21 05:35 Ordered CORONAVIRUS COVID-19 DARIA [MOLEC] Stat Lab 02/17/21 05:36 Ordered RAPID PLASMA REAGIN,RPR [CHEM] Routine Lab 02/17/21 05:35 Ordered Lactated Ringers [Ringers, Lactated] 1,000 ml Med 02/17/21 05:45 Ordered IV ASDIRECTED Nalbuphine [Nubain] Med 02/17/21 05:35 Ordered 10 mg IVPUSH Q2H PRN Oxytocin/Lactated Ringers [Pitocin in LR 10 Units/1,000 Med 02/17/21 05:45 Ordered ML] 10 unit in 1,000 ml IV .CONTINUOUS Sodium Chloride 0.9% [Saline Flush] Med 02/17/21 05:35 Ordered 10 ml FLUSH ASDIRECTED PRN Electronic Heart Tones Ext w TOCO [WOMSER] Oth 02/17/21 05:35 Ordered Routine Electronic Heart Tones Internal [WOMSER] Per Unit Oth 02/17/21 05:35 Ordered Routine Peripheral IV Insertion Adult [OM.PC] Routine Oth 02/17/21 05:35 Ordered Resuscitation Status Routine Resus Stat 02/17/21 05:35 Ordered Medication Orders Lactated Ringer's (Ringers, Lactated) 1,000 mls @ 100 mls/hr IV ASDIRECTED ANDRZEJ Oxytocin/Lactated Ringer's (Pitocin In Lr 10 Units/1,000 Ml) 10 unit in 1,000 mls @ 500 mls/hr IV .CONTINUOUS ANDRZEJ Nalbuphine HCl (Nalbuphine 10 Mg/1 Ml Vial) 10 mg IVPUSH Q2H PRN PRN Reason: Pain Sodium Chloride (Sodium Chloride 0.9% 10 Ml Syringe) 10 ml FLUSH ASDIRECTED PRN PRN Reason: Keep Vein Open Assessment/Plan Comment:: Patient presented to floor and RN noted feet at vaginal introitus. I was called at 0451 by RN state and OR crew called as well. Arrived at 0500. feet noted at introitus. Exam shows what is thought to be complete dilation. FHR tracing showed recurrent late decelerations into the 60's. Verbally reviewed risks of attempted and risks of attempted breech vaginal . Patient did consent to attempted vaginal delivery. See delivery note. * Labs to be done * GBS negative * Peds notified to attend delivery
[2021-02-17] MEDS ORDERED: Lactated Ringers 1,000 ML IV SCH (05:45)
[2021-02-17] MEDS ORDERED: Oxytocin/Lactated Ringers 10 UNIT/1,000 ML BAG IV SCH (05:45)
[2021-02-17] MEDS ORDERED: Witch Hazel Medicated Pads 40/Jar TOP PRN (06:08)
[2021-02-17] MEDS ORDERED: Benzocaine/Menthol 20%-0.5% Spray 78 GM Cannister TOP PRN (06:08)
[2021-02-17] MEDS ORDERED: Acetaminophen 325 MG Tab PO PRN (06:08)
[2021-02-17] MEDS: Ibuprofen 600 MG Tab PO PRN ×3 (06:41→20:27)
--- NOTE | 2021-02-18 06:33 | PCM.PNPP ---
- General Info Date of Service: 02/18/21 Functional Status: Reports: Pain Controlled, Tolerating Diet, Ambulating - Review of Systems General: Reports: No Symptoms Pulmonary: Reports: No Symptoms Cardiovascular: Reports: No Symptoms Gastrointestinal: Reports: No Symptoms Genitourinary: Reports: Incontinence Musculoskeletal: Reports: No Symptoms - General Info Date of Service: 02/18/21 - Patient Data Vital Signs - Most Recent: Last Vital Signs Temp 36.4 C 02/18/21 05:04 Pulse 81 02/18/21 05:04 Resp 16 02/18/21 05:04 BP 121/87 02/18/21 05:04 Pulse Ox 98 02/18/21 05:04 Weight - Most Recent: 93.44 kg I&O - Last 24 Hours: Intake & Output 02/17/21 02/17/21 02/18/21 14:59 22:59 06:59 Intake Total 1662 545 Balance 1662 545 Lab Results - Last 24 Hours: Laboratory Results - last 24 hr 02/17/21 02/17/21 02/17/21 Range/Units 05:37 05:55 06:40 RPR Non-reactive (NONREACTIVE) SARS-CoV-2 RNA (DARIA) Negative (NEGATIVE) Blood Type O NEGATIVE Gel Antibody Screen Positive Screen 3 ros/5 flds - neg RhIG Candidate? Yes Rhogam Indicated Yes, baby rh pos H Med Orders - Current: Current Medications Acetaminophen (Acetaminophen 325 Mg Tab) 650 mg PO Q4H PRN PRN Reason: mild pain or fever Last Admin: 02/17/21 09:35 Dose: 650 mg Documented by: Benzocaine/Menthol (Benzocaine/Menthol 20%-0.5% [place] 78 Gm Cannister) 0 gm TOP ASDIRECTED PRN PRN Reason: Perineal Comfort Measure Last Admin: 02/17/21 09:36 Dose: 1 can Documented by: Ibuprofen (Ibuprofen 600 Mg Tab) 600 mg PO Q4H PRN PRN Reason: Mild pain or fever Last Admin: 02/17/21 20:27 Dose: 600 mg Documented by: Ciara Coronado (Witch Ivonne Medicated Pads 40/Jar) 1 pad TOP ASDIRECTED PRN PRN Reason: Perineal Comfort Measure Last Admin: 02/17/21 09:36 Dose: 1 canister Documented by: Discontinued Medications Oxytocin/Lactated Ringer's (Pitocin In Lr 10 Units/1,000 Ml) Confirm Administered Dose 10 unit in 1,000 mls @ as directed IV .STK-MED ONE Stop: 02/17/21 05:08 Last Admin: 02/17/21 09:24 Dose: Not Given Documented by: Lactated Ringer's (Ringers, Lactated) 1,000 mls @ 100 mls/hr IV ASDIRECTED ANDRZEJ Last Admin: 02/17/21 05:55 Dose: 100 mls/hr Documented by: Oxytocin/Lactated Ringer's (Pitocin In Lr 10 Units/1,000 Ml) 10 unit in 1,000 mls @ 500 mls/hr IV .CONTINUOUS ANDRZEJ Last Admin: 02/17/21 05:15 Dose: 500 mls/hr Documented by: Lidocaine HCl (Lidocaine 1% 50 Ml Mdv) Confirm Administered Dose 50 ml .ROUTE .STK-MED ONE Stop: 02/17/21 05:23 Last Admin: 02/17/21 05:20 Dose: 50 ml Documented by: Nalbuphine HCl (Nalbuphine 10 Mg/1 Ml Vial) 10 mg IVPUSH Q2H PRN PRN Reason: Pain Sodium Chloride (Sodium Chloride 0.9% 10 Ml Syringe) 10 ml FLUSH ASDIRECTED PRN PRN Reason: Keep Vein Open - Infant Interaction Disposition, : [place] in Room with Family Infant Interaction: Holding Feeding: Breastfed ; Nursed Well Support Person: - Recovery Exam Fundal Tone: Firm Fundal Level: 1 Fingerbreadths Below Umbilicus Fundal Placement: Midline Lochia Amount: Small Lochia Color: Rubra/Red Perineum Description: Other (see below) Other Perinuem Description: 2nd deg lac with repair Episiotomy/Laceration: Approximated Bladder Status: Voiding - Exam General: Alert, Oriented, Cooperative GI/Abdominal Exam: Soft, Non-Tender - Problem List & Annotations (1) 38 weeks gestation of SNOMED Code(s): 26733150 Code(s): Z3A.38 - 38 WEEKS GESTATION OF Status: Acute (2) Advanced maternal age (AMA), 40 years or greater SNOMED Code(s): 770913492 Code(s): RXE0394 - Status: Acute (3) Footling breech presentation SNOMED Code(s): 779893440 Code(s): O32.8XX0 - MATERNAL CARE FOR OTH MALPRESENTATION OF FETUS, UNSP Status: Acute Qualifiers: Fetus number: single or unspecified fetus Qualified Code(s): O32.8XX0 - Maternal care for other malpresentation of fetus, not applicable or unspecified (4) History of delivery SNOMED Code(s): 992330801 Code(s): Z98.891 - HISTORY OF UTERINE SCAR FROM PREVIOUS SURGERY Status: Acute (5) History of SNOMED Code(s): 035098440, 150631653 Code(s): Z98.891 - HISTORY OF UTERINE SCAR FROM PREVIOUS SURGERY Status: Acute (6) Rh negative status during in third trimester, antepartum SNOMED Code(s): 093297502 Code(s): O09.893 - SUPERVISION OF OTHER HIGH RISK PREGNANCIES, THIRD TRIMESTER Status: Acute (7) Breech delivery SNOMED Code(s): 505642655, 894237210 Code(s): O32.1XX0 - MATERNAL CARE FOR BREECH PRESENTATION, UNSP Status: Acute Qualifiers: Fetus number: single or unspecified fetus Qualified Code(s): O32.1XX0 - Maternal care for breech presentation, not applicable or unspecified (8) , delivered, current hospitalization SNOMED Code(s): 460667285 Code(s): O34.219 - MATERNAL CARE FOR UNSP TYPE SCAR FROM PREVIOUS DEL Status: Acute - Problem List Review Problem List Initiated/Reviewed/Updated: Yes - My Orders Last 24 Hours: My Active Orders 02/17/21 05:35 Resuscitation Status Routine 02/17/21 05:37 ANTIBODY IDENTIFICATION [BBK] Routine SCREEN [BBK] Routine RH IMMUNE GLOBULIN [BBK] Routine RHOGAM, [RHIG WORKUP, ] [BBK] Routine 02/17/21 06:08 Acetaminophen [TylenoL] 650 mg PO Q4H PRN Benzocaine/Menthol [Dermoplast Pain Relief 20%-0.5% [place]] See Dose Instructions TOP ASDIRECTED PRN Ibuprofen [Motrin] 600 mg PO Q4H PRN witch Ivonne [Tucks] 1 pad TOP ASDIRECTED PRN Heat Therapy [OM.PC] PRN 02/17/21 06:08 Patient Status [ADT] Routine Activity as Tolerated [RC] PER UNIT ROUTINE Vital Signs [RC] 03,,, Assess Lochia [WOMSER] Per Unit Routine Assess Uterine Involution [WOMSER] Per Unit Routine Breast Pump [WOMSER] Per Unit Routine Ice Therapy [OM.PC] Per Unit Routine Medication Administration Instruction [OM.PC] Routine Perineal Care [OM.PC] Per Unit Routine Peripheral IV Discontinue [OM.PC] Routine Sitz Bath [OM.PC] Per Unit Routine 02/17/21 Breakfast Regular Diet [DIET] 02/18/21 06:08 Heat Therapy [OM.PC] PRN 02/18/21 06:33 Ready for Discharge [RC] PER UNIT ROUTINE - Assessment Assessment:: PPD#1 - Plan Plan:: * Routine cares * S/p Rhogam, baby Rh positive * Breast feeding * Reviewed option of pelvic floor PT for incontinence concerns * Discharge today
--- NOTE | 2021-02-18 06:34 | PCM.DCSUM1 ---
Discharge Summary - Discharge Data Discharge Date: 02/18/21 Discharge Disposition: Home, Self-Care 01 Condition: Good - Referral to Home Health Primary Care Physician: Cayetano Land MD - Discharge Diagnosis/Problem(s) (1) 38 weeks gestation of SNOMED Code(s): 68488402 ICD Code: Z3A.38 - 38 WEEKS GESTATION OF Status: Acute (2) Advanced maternal age (AMA), 40 years or greater SNOMED Code(s): 978306590 ICD Code: [id number] - Status: Acute (3) Footling breech presentation SNOMED Code(s): 046982315 ICD Code: O32.8XX0 - MATERNAL CARE FOR OTH MALPRESENTATION OF FETUS, UNSP Status: Acute Qualifiers: Fetus number: single or unspecified fetus Qualified Code(s): O32.8XX0 - Maternal care for other malpresentation of fetus, not applicable or unspecified (4) History of delivery SNOMED Code(s): 422524211 ICD Code: Z98.891 - HISTORY OF UTERINE SCAR FROM PREVIOUS SURGERY Status: Acute (5) History of SNOMED Code(s): 915778203, 395562767 ICD Code: Z98.891 - HISTORY OF UTERINE SCAR FROM PREVIOUS SURGERY Status: Acute (6) Rh negative status during in third trimester, antepartum SNOMED Code(s): 871897584 ICD Code: O09.893 - SUPERVISION OF OTHER HIGH RISK PREGNANCIES, THIRD TRIMESTER Status: Acute (7) Breech delivery SNOMED Code(s): 682876745, 814184076 ICD Code: O32.1XX0 - MATERNAL CARE FOR BREECH PRESENTATION, UNSP Status: Acute Qualifiers: Fetus number: single or unspecified fetus Qualified Code(s): O32.1XX0 - Maternal care for breech presentation, not applicable or unspecified (8) , delivered, current hospitalization SNOMED Code(s): 523149066 ICD Code: O34.219 - MATERNAL CARE FOR UNSP TYPE SCAR FROM PREVIOUS DEL Status: Acute - Patient Summary/Data Complications: None Consults: None Recommended Follow-up Testing/Procedures: Follow up in 3 weeks for check Hospital Course: 40 y/o at 38 0/7 wks presented with SROM and footling breech fetus at introitus. Underwent a breech . See delivery note. did well. Was discharged home on PPD#1 - Patient Instructions Diet: Regular Diet as Tolerated Activity: As Tolerated Activity, Other: Pelvic rest for 6 weeks Driving: May Drive Today Showering/Bathing: May Shower Showering/Bathing, Other: May Bathe Notify Provider of: Fever, Increased Pain, Swelling and Redness, Drainage, Nausea and/or Vomiting - Discharge Plan *PRESCRIPTION DRUG MONITORING PROGRAM REVIEWED*: No *COPY OF PRESCRIPTION DRUG MONITORING REPORT IN PATIENT EDIN: No Home Medications: Home Meds Acetaminophen [Tylenol] 650 mg PO Q4H PRN tablet 02/17/21 [Rx] Ibuprofen [Motrin] 600 mg PO Q4H PRN tablet 02/17/21 [Rx] No122/Iron/Folic Acid [ Multi Tablet] 1 each PO DAILY 02/17/21 [History] Patient Handouts: Care After Vaginal Delivery Referrals: Cayetano Land MD [Primary Care Provider] - (3 weeks for check ) - Discharge Summary/Plan Comment DC Time >30 min.: No Total # of Minutes for Discharge Time: 15 - Patient Data Vitals - Most Recent: Last Vital Signs Temp 36.4 C 02/18/21 05:04 Pulse 81 02/18/21 05:04 Resp 16 02/18/21 05:04 BP 121/87 02/18/21 05:04 Pulse Ox 98 02/18/21 05:04 Weight - Most Recent: 93.44 kg I&O - Last 24 hours: Intake & Output 02/17/21 02/17/21 02/18/21 14:59 22:59 06:59 Intake Total 1662 545 Balance 1662 545 Lab Results - Last 24 hrs: Laboratory Results - last 24 hr 02/17/21 02/17/21 02/17/21 Range/Units 05:37 05:55 06:40 RPR Non-reactive (NONREACTIVE) SARS-CoV-2 RNA (DARIA) Negative (NEGATIVE) Blood Type O NEGATIVE Gel Antibody Screen Positive Screen 3 ros/5 flds - neg RhIG Candidate? Yes Rhogam Indicated Yes, baby rh pos H Med Orders - Current: Current Medications Acetaminophen (Acetaminophen 325 Mg Tab) 650 mg PO Q4H PRN PRN Reason: mild pain or fever Last Admin: 02/17/21 09:35 Dose: 650 mg Documented by: Benzocaine/Menthol (Benzocaine/Menthol 20%-0.5% [place] 78 Gm Cannister) 0 gm TOP ASDIRECTED PRN PRN Reason: Perineal Comfort Measure Last Admin: 02/17/21 09:36 Dose: 1 can Documented by: Ibuprofen (Ibuprofen 600 Mg Tab) 600 mg PO Q4H PRN PRN Reason: Mild pain or fever Last Admin: 02/17/21 20:27 Dose: 600 mg Documented by: Ciara Coronado (Ciara Coronado Medicated Pads 40/Jar) 1 pad TOP ASDIRECTED PRN PRN Reason: Perineal Comfort Measure Last Admin: 02/17/21 09:36 Dose: 1 canister Documented by: Discontinued Medications Oxytocin/Lactated Ringer's (Pitocin In Lr 10 Units/1,000 Ml) Confirm Administered Dose 10 unit in 1,000 mls @ as directed IV .STK-MED ONE Stop: 02/17/21 05:08 Last Admin: 02/17/21 09:24 Dose: Not Given Documented by: Lactated Ringer's (Ringers, Lactated) 1,000 mls @ 100 mls/hr IV ASDIRECTED ANDRZEJ Last Admin: 02/17/21 05:55 Dose: 100 mls/hr Documented by: Oxytocin/Lactated Ringer's (Pitocin In Lr 10 Units/1,000 Ml) 10 unit in 1,000 mls @ 500 mls/hr IV .CONTINUOUS ANDRZEJ Last Admin: 02/17/21 05:15 Dose: 500 mls/hr Documented by: Lidocaine HCl (Lidocaine 1% 50 Ml Mdv) Confirm Administered Dose 50 ml .ROUTE .STK-MED ONE Stop: 02/17/21 05:23 Last Admin: 02/17/21 05:20 Dose: 50 ml Documented by: Nalbuphine HCl (Nalbuphine 10 Mg/1 Ml Vial) 10 mg IVPUSH Q2H PRN PRN Reason: Pain Sodium Chloride (Sodium Chloride 0.9% 10 Ml Syringe) 10 ml FLUSH ASDIRECTED PRN PRN Reason: Keep Vein Open
[2021-02-18] MEDS: Ibuprofen 600 MG Tab PO PRN (06:52)
[2021-02-18 11:37] VITALS: BP 110/67; PULSE 84
== END 2021-02-18 13:00 | disposition home or self-care (01) | DRG 560 ==
LOC: JD.OBCHECK 04:41 → JD.OB 04:45 → JD.OBCHECK 04:45 → OBSVTOIN 04:45 → JD.OB 04:45 → JD.OBCHECK 04:46 → JD.OB 04:46 → UNDOADMOB 05:35 → INTOOBSV 05:35 → JD.OB 05:35 → OBSVTOIN 05:35 → JD.OBCHECK 05:35 → JD.OB 05:36 → UNDOADMOB 05:36 → JD.OB 05:36
PROVIDERS: ADMIT Obstetrics & Gynecology; ATTEND Obstetrics & Gynecology
PROC: 10E0XZZ Delivery of Products of Conception, External Approach (ICD-10-PCS; principal; 2021-02-17)
PROC: 10907ZC Drainage of Amniotic Fluid, Therapeutic from Products of Conception, Via Natural or Artificial Opening (ICD-10-PCS; 2021-02-17)
PROC: 0KQM0ZZ Repair Perineum Muscle, Open Approach (ICD-10-PCS; 2021-02-17)
DX: O32.1XX0 Maternal care for breech presentation, not applicable or unspecified (principal); Z3A.38 38 weeks gestation of pregnancy; Z37.0 Single live birth; O76 Abnormality in fetal heart rate and rhythm complicating labor and delivery; O70.1 Second degree perineal laceration during delivery; Z20.822 Contact with and (suspected) exposure to COVID-19; O26.893 Other specified pregnancy related conditions, third trimester; Z67.41 Type O blood, Rh negative
CPT/HCPCS: 36415; 59025; 59409; 85025; 85461; 86592; 86850; 86870; 86900; 86901; A9270-GY; J2001; J2590; J2790; J7120; U0002